=== PATIENT | female | born 2000 | race African-American/Black ===

== ENCOUNTER 2018-02-04 22:45 | Emergency (ER) | payer OTHER ==
[2018-02-05] MEDS ORDERED: diPHENhydraMINE PO* 25 MG PO ONE (00:18)
--- NOTE | 2018-02-05 00:26 | ED ---
Skin Complaint - HPI Summary HPI Summary: 17-year-old female presents with right foot edema for the past day. States she had a bug bite days ago. States that the area is very itchy. She has placed some demario vapor rub on the area. She denies any fevers and chills. No medical conditions. No history of MRSA or cellulitis. - History of Current Complaint Chief Complaint: EDExtremityLower Time Seen by Provider: 02/05/18 00:07 Stated Complaint: RT FT SWOLLEN Pain Intensity: 1 - Allergy/Home Medications Allergies/Adverse Reactions: Allergies Allergy/AdvReac Type Severity Reaction Status Date / Time amoxicillin AdvReac Intermediate Hives Verified 02/04/18 22:53 PMH/Surg Hx/FS Hx/Imm Hx Endocrine/Hematology History: Denies: Hx Anticoagulant Therapy Cardiovascular History: Denies: Hx Hypertension Infectious Disease History: No Infectious Disease History: Denies: Traveled Outside the [place] in Last 30 Days - Family History Known Family History: Negative: Diabetes - Social History Alcohol Use: Occasionally Substance Use Type: Reports: None Smoking Status (MU): Never Smoked Tobacco Review of Systems Negative: Fever Negative: Chest Pain Negative: Shortness Of Breath Positive: Edema - right foot All Other Systems Reviewed And Are Negative: Yes Physical Exam Triage Information Reviewed: Yes Vital Signs On Initial Exam: Initial Vitals Temp Pulse Resp BP Pulse Ox 98.6 F 78 18 133/77 99 02/04/18 22:50 02/04/18 22:50 02/04/18 22:50 02/04/18 22:50 02/04/18 22:50 Vital Signs Reviewed: Yes Appearance: Positive: Well-Appearing Skin: Positive: Warm, Dry Head/Face: Positive: Normal Head/Face Inspection Eyes: Positive: Normal, Conjunctiva Clear ENT: Positive: Pharynx normal Respiratory/Lung Sounds: Positive: Clear to Auscultation, Breath Sounds Present Cardiovascular: Positive: Normal, RRR Musculoskeletal: Positive: Edema Right - foot, Other - minimial redness with some warm to area on edema on right foot, good pulses Neurological: Positive: Normal Psychiatric: Positive: Normal Diagnostics - Vital Signs Vital Signs Temp Pulse Resp BP Pulse Ox 02/04/18 22:50 98.6 F 78 18 133/77 99 - Laboratory Lab Statement: Any lab studies that have been ordered have been reviewed, and results considered in the medical decision making process. Course/Dx - Course Course Of Treatment: 17-year-old female presents with right foot edema for the past day. States she had a bug bite days ago. States that the area is very itchy. She has placed some demario vapor rub on the area. She denies any fevers and chills. No medical conditions. No history of MRSA or cellulitis. On exam has edema noted to right foot. Minimal erythema and warmth. Appears almost like allergic reaction vs early cellulitis. We'll have her take Benadryl and told that if it becomes more warmer or more redness to start the Keflex. patient had hives to amoxicillin when was baby so probably low risk of hives with keflex but discussed risk. Patient understands agrees with plan. - Differential Diagnoses - Skin Complaint Differential Diagnoses: Cellulitis, Contact Dermatitis, Other - local allergic reaction - Diagnoses Provider Diagnoses: Bug bite Discharge - Sign-Out/Discharge Documenting (check all that apply): Patient Departure - Discharge Plan Condition: Good Disposition: HOME Prescriptions: Cephalexin CAP* [Keflex CAP*] 500 mg PO BID #[id number] cap Patient Education Materials: Cellulitis (ED) Referrals: No Primary Care Phys,NOPCP [Primary Care Provider] - Additional Instructions: take benadryl every 6 hours for itching can apply hydrocortisone twice a day for itching tomorrow if area is warm, redness present, take keflex twice a day for 7 days Return to ED if develop any fever or any new or worsening symptoms - Billing Disposition and Condition Condition: GOOD Disposition: Home
[2018-02-05 00:35] VITALS: BP 124/81
== END 2018-02-05 00:35 | disposition home or self-care (01) ==
LOC: ED 22:45
DX: S90.861A Insect bite (nonvenomous), right foot, initial encounter (principal); R60.0 Localized edema; W57.XXXA Bitten or stung by nonvenomous insect and other nonvenomous arthropods, initial encounter; Y92.9 Unspecified place or not applicable
CPT/HCPCS: 99282; A9270-GY